=== PATIENT | male | born 1985 | race Caucasian/White ===

== ENCOUNTER 2018-05-16 16:07 | Emergency (ER) | payer OTHER ==
[~2018-05-16] VITALS: Ht 170.2 cm; Wt 77.1 kg
--- NOTE | 2018-05-16 16:08 | NUR ---
PT STEVE BYNUM, CURRENTLY AWAITING BED
[2018-05-16 16:12] VITALS: BP 178/121
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
--- NOTE | 2018-05-16 16:26 | NUR ---
PT TAKEN TO BED 4 BY EMS CREW
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
--- NOTE | 2018-05-16 16:45 | NUR ---
PT STATES HE WANTS TO LEAVE AT THIS TIME AND DOES NOT WANT TO BE HERE. DR. SMITH NOTIFIED.
--- NOTE | 2018-05-16 16:46 | NUR ---
PT LEAVING AT THIS TIME WITH STEADY GAIT, VSS. NO S/S OF DISTRESS NOTED.
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
== END 2018-05-16 16:46 | disposition left against medical advice (07) ==
LOC: MED 16:07
DX: F10.129 Alcohol abuse with intoxication, unspecified (principal); Z53.21 Procedure and treatment not carried out due to patient leaving prior to being seen by health care provider

== ENCOUNTER 2018-06-05 11:46 | Emergency (ER) | payer OTHER ==
[~2018-06-05] VITALS: Ht 167.6 cm; Wt 81.6 kg
--- NOTE | 2018-06-05 11:47 | NUR ---
PT TAKEN TO [place] AT THIS TIME IN POLICE CUSTODY IN HANDCUFFS BY [employer] OFFICER NAN.
[2018-06-05 11:50] VITALS: BP 183/87
[2018-06-05 12:27] VITALS: BP 183/87
--- NOTE | 2018-06-05 12:28 | NUR ---
Patient discharged with v/s stable. Written and verbal after care instructions given and explained. Patient verbalized understanding. excorted by police in custody. All questions addressed prior to discharge. Advised to follow up with PMD.
== END 2018-06-05 12:28 ==
LOC: MED 11:46
DX: F15.10 Other stimulant abuse, uncomplicated (principal); F32.9 Major depressive disorder, single episode, unspecified
CPT/HCPCS: 99283

== ENCOUNTER 2018-07-01 15:46 | Emergency (ER) | payer OTHER ==
[~2018-07-01] VITALS: Ht 170.2 cm; Wt 83.9 kg
[2018-07-01 15:46] VITALS: BP 165/113
--- NOTE | 2018-07-01 15:46 | NUR ---
PATIENT TRIAGED, VSS. CURRENTLY BEDS ARE FULL, [facility] ARE SITTING AT [facility]. PT WILL GO TO ROOM 8.
[2018-07-01] MEDS ORDERED: NACL 0.9% 1,000 ML IV ONE (16:43)
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
--- NOTE | 2018-07-01 17:14 | NUR ---
BISHNU AT BEDSIDE
--- NOTE | 2018-07-01 17:25 | NUR ---
PT REFUSING IV, MEDICATIONS, URINE, AND BLOOD DRAW
--- NOTE | 2018-07-01 17:56 | NUR ---
MOTHER AT BEDSIDE
--- NOTE | 2018-07-01 18:07 | NUR ---
ADAKU/EMT AT BEDSIDE
[2018-07-01] MEDS ORDERED: LORazepam 2 MG/ML VIAL IM ONE (18:15)
--- NOTE | 2018-07-01 18:41 | NUR ---
offered ativan to pt, pt refused.
[2018-07-01 18:48] LABS: BASOPHILS % (AUTO) 0.2 % (0.0-2.0); EOSINOPHILS % (AUTO) 0.3 % (0.0-4.0); HEMATOCRIT 49.4 % (36-52); HEMOGLOBIN 17.1 g/dL (12.0-18.0); LYMPHOCYTES # (AUTO) 2.3 K/uL (2.0-11.5); LYMPHOCYTES % (AUTO) 27.8 % (20.5-51.1); MEAN CORPUSCULAR HEMOGLOBIN 31 pg (27-31); MEAN CORPUSCULAR HGB CONC 35 g/dL (33-37); MONOCYTES # (AUTO) 0.7 K/uL (0.8-1.0); MONOCYTES % (AUTO) 8.9 % (1.7-9.3); NEUTROPHILS # (AUTO) 5.3 K/uL (1.8-7.7); NEUTROPHILS % (AUTO) 62.8 % (42.2-75.2); PLATELET COUNT (AUTO) 252 K/uL (140-450); RED BLOOD CELL COUNT(AUTO) 5.55 MIL/uL (4.20-6.10); RED CELL DISTRIBUTION WIDTH 13.6 % (11.6-13.7); WHITE BLOOD COUNT (AUTO) 8.4 K/uL (4.8-10.8)
[2018-07-01 18:59] LABS: ANION GAP 18.8 (8-16); CARBON DIOXIDE 24.9 mmol/L (21-32); CHLORIDE 102 mmol/L (98-107); GFR ARICAN-AMERICAN 111 mL/min (>90); GLUCOSE 85 mg/dL (74-106); POTASSIUM 3.7 mmol/L (3.5-5.1); SODIUM SERUM 142 mmol/L (136-145); UREA NITROGEN, BLOOD 18 mg/dL (7-18)
[2018-07-01 19:07] LABS: ALBUMIN 4.3 g/dL (3.4-5.0); ASPARTATE AMINOTRANSFERASE 26 U/L (15-37); TOTAL BILIRUBIN 0.5 mg/dL (0.0-1.0)
[2018-07-01 19:13] LABS: ACETAMINOPHEN < 0.5 ug/ml (10-30); SALICYLATE < 2.8 mg/dL (2.8-20.0)
--- NOTE | 2018-07-01 19:13 | NUR ---
report given to judd/mere
--- NOTE | 2018-07-01 19:20 | NUR ---
RECEIVED REPORT FROM AM NURSE. PT LAYING IN BED, MOTHER AT BEDSIDE. EXPLAINED TO PT THAT URINE SAMPLE IS NEEDED FOR PT TO GET MEDICAL CLEARANCE, PT IRRITABLE BUT COOPERATIVE, ATTEMPTED TO COLLECT URINE BUT UNABLE AT THIS TIME. PT GIVEN WATER. ER MD MADE AWARE. PER ER MD, VERBAL ORDER TO STRAIGHT CATH FOR URINE. EXPLAINED TO PT AND MOTHER.
--- NOTE | 2018-07-01 19:20 | NUR ---
PT LAYING IN BED, MOTHER AT BEDSIDE. RR EVEN AND UNLABORED. PT IS NOT ANSWERING IF PT HAS SI/HI OR PLAN AT THIS TIME, STATING "WHERE ARE MY PANTS." EXPLAINED TO PT THAT PT'S BELONGINGS WERE SENT TO SECURITY FOR PT AND FACILITY'S SAFETY. 1:1 SITTER WITH CLOSE MONITORING AT BEDSIDE, SAFETY MEASURES ENSURED, ENVIRONMENT CHECKED.
--- NOTE | 2018-07-01 19:47 | NUR ---
Note jeseone in EDM - 07/01/18 at 1948 by VAL RECEIVED REPORT FROM AM NURSE. PT LAYING IN BED, RR EVEN AND UNLABORED. PT DENIES ANY CP, PORTILLO, SOB, N/V, DIZZINESS. ALL NEEDS MET. AWAITING ER MSE
--- NOTE | 2018-07-01 19:58 | NUR ---
EXPLAINED TO PT AND PT'S FATHER THAT URINE SAMPLE IS NEEDED FOR PT TO GET MEDICAL CLEARANCE, PT IRRITABLE BUT COOPERATIVE, ATTEMPTED TO COLLECT URINE BUT UNABLE. EXPLAINED TO PT AND PT'S FATHER THAT ER MD ORDERED TO HAVE STRAIGHT CATH TO GET MEDICAL CLEARANCE AND NOT TO DELAY CARE. PT ABLE TO SUCCESSFULLY COLLECT OWN URINE AT THIS TIME. PT GIVEN SANDWICH.
--- NOTE | 2018-07-01 20:11 | NUR ---
TELEPSYCH REQUEST SENT
[2018-07-01 20:26] LABS: APPEARANCE,URINE CLEAR (CLEAR); BILIRUBIN,URINE 2+ (NEGATIVE); BLOOD, URINE NEGATIVE (NEGATIVE); COLOR,URINE YELLOW (YELLOW); LEUKOCYTE ESTERASE ,URINE NEGATIVE (NEGATIVE); NITRITE, URINE NEGATIVE (NEGATIVE); UGLUCOSE NEGATIVE (NEGATIVE)
[2018-07-01 20:37] LABS: RBC,URINE 0-5 /HPF (0-5)
[2018-07-01 20:38] LABS: WBC,URINE 0-5 /HPF (0-5)
[2018-07-01 20:40] LABS: BARBITURATE, URINE NEG. ng/ml (NEG <=200); BENZODIAZEPINE, URINE NEG. ng/mL (NEG <=200); CANNABINOID, URINE POS. ng/mL (NEG <=50); COCAINE, URINE NEG. ng/mL (NEG <=300); OPIATE, URINE NEG. ng/mL (NEG <=2000); PHENCYCLIDINE SCREEN,URINE POS. ng/mL (NEG <=25)
--- NOTE | 2018-07-01 20:58 | NUR ---
PT LAYING IN BED, RR EVEN AND UNLABORED. VS NOTED. ALL NEEDS MET. 1:1 SITTER AT BEDSIDE WITH CLOSE MONITOR. ENVIRONMENT CHECKED, SAFETY MEASURES ENSURED.
--- NOTE | 2018-07-01 22:03 | NUR ---
Packet has been recieved, will begin looking for bed placement at contracted facilities.
--- NOTE | 2018-07-01 22:22 | NUR ---
Called the following contracted psych facilities requesting for bed placement. Currently[facility], spoke with Maribeth. [facility], spoke with Dale. Packet faxed for waiting list. [facility], spoke with nursing food and nutrition services supervisor Jing. [facility], spoke with Blanca. Packet faxed for waiting list. [facility], spoke with Marcela. [facility], spoke with Maribeth. Packet faxed for waiting list. Will continue to look for bed placement.
--- NOTE | 2018-07-01 22:47 | NUR ---
PER RELIGIOUS HEALER, TELEPSYCH HAS BEEN DELAYED DUE TO HIGH VOLUMES. PT AND PT'S MOTHER MADE AWARE. PT'S MOTHER ASKING FOR RESULTS OF BLOODWORK AND URINE. ASKED PT FOR PERMISSION TO DISCUSS PT'S MEDICAL RESULTS, PT STATED "NO, YOU'RE JUST GOING TO CALL ME A DRUG ADDICT." STATED TO PT'S MOTHER THAT PT'S RESULTS CANNOT BE DISCUSSED WITHOUT PT'S PERMISSION AT THIS TIME, VERBALIZED UNDERSTANDING.
--- NOTE | 2018-07-01 22:48 | NUR ---
PT LAYING IN BED, PT MOTHER AT BEDSIDE. RR EVEN AND UNLABORED. ALL NEEDS MET. 1:1 SITTER AT BEDSIDE WITH CLOSE MONITOR. ENVIRONMENT CHECKED, SAFETY MEASURES ENSURED. AWAITING TELEPSYCH EVAL
--- NOTE | 2018-07-01 23:02 | NUR ---
PT AGREED TO HAVE MEDICAL RECORDS DISCUSSED WITH MOTHER AT BEDSIDE, PT STATED "YEA LET ME KNOW WHAT'S UP." PER ER MD, MADE PT AWARE THAT URINE WAS +PCP AND +CANNIBANOID. VS NOTED, AWAITING TELEPSYCH EVAL.
--- NOTE | 2018-07-01 23:33 | NUR ---
Pt report given to STONE GUAMAN. Transfer of care at this time.
--- NOTE | 2018-07-02 00:02 | NUR ---
PT AND HIS MOM AT BEDSIDE BOTH OF THEM ARE USING SWEAR WORDS, PT STATES HE IS NOT FUCKING STAYING HERE. HE WALKED OUT THE SLIDING GLASS DOORS 2X. EXPLAINED TO MOM THAT PT IS ON A 5150 HOLD AND MOM STARTING USING SWEAR WORDS.
--- NOTE | 2018-07-02 00:03 | NUR ---
[facility] CALLED FOR PATIENT WALKING OUT OF ER. PT IN PARKING LOT. SECURITY IS THERE. ALISHA ZARATE ON THEIR WAY.
--- NOTE | 2018-07-02 00:08 | NUR ---
DR RAO AT BEDSIDE TALKING WITH MOM AND PT. [facility] ARRIVED AND IS AT BEDSIDE.
--- NOTE | 2018-07-02 00:17 | NUR ---
SPOKE WITH DR. GALO REGARDING PT STATUS FOR TELEPSYCH CONSULT.
--- NOTE | 2018-07-02 00:19 | NUR ---
[facility] TALKED WITH PT. PT HAS AGREED AT THIS TIME TO COOPERATE WITH STAFF. PT HAS STOPPED USING SWEAR WORDS AT THIS TIME.
--- NOTE | 2018-07-02 00:20 | NUR ---
MOVED TO ER BED 5
--- NOTE | 2018-07-02 00:25 | NUR ---
ASSUMED CARE OF PT AT THIS TIME.
--- NOTE | 2018-07-02 00:26 | NUR ---
PT SPEAKING WITH TELEPSYCH MD AT THIS TIME. MOTHER AT BEDSIDE. TELEPSYCH MD ASKING BOTH PT AND PT'S MOTHER QUESTIONS.
--- NOTE | 2018-07-02 00:42 | NUR ---
RECEIVED CALL FROM DR GALO ; WAS MADE AWARE THAT PT IS BEING RELEASED FROM 5150 HOLD AND ADVISED TO GO OUTPATIENT. STATED THAT PT IS NOT SUICIDAL OR HOMICIDAL. STATED THAT PT IS DEPRESSED, ADMITS TO SUBSTANCE ABUSE AND AGREES TO CUT DOWN ON USE. DR RAO MADE AWARE.
--- NOTE | 2018-07-02 01:10 | NUR ---
PT PROVIDED WITH MENTAL HEALTH/COUNSELING PACKET AND SUBSTANCE ABUSE PACKET, PT VERBALIZED UNDERSTANDING.
[2018-07-02 01:11] VITALS: BP 140/94
--- NOTE | 2018-07-02 01:23 | NUR ---
ALL BELONGINGS RETURNED TO PT.
== END 2018-07-02 01:11 | disposition home or self-care (01) ==
LOC: MED 15:46
DX: F32.9 Major depressive disorder, single episode, unspecified (principal); F41.9 Anxiety disorder, unspecified; F19.10 Other psychoactive substance abuse, uncomplicated
CPT/HCPCS: 36415; 80053; 80305; 81001; 85025; 96372; 99285; G0480; G0482

== ENCOUNTER 2020-04-20 10:18 | Emergency (ER) | payer OTHER ==
[~2020-04-20] VITALS: Ht 170.2 cm; Wt 99.8 kg
--- NOTE | 2020-04-20 10:34 | NUR ---
PT REFUSING TO HAVE STAFF TAKE VITAL SIGNS. PT AGGRESSIVE REFUSING TO ALLOW US TO TAKE VITALS. PT VERBALLY AGGRESSIVE YELLING "FUCK YOU GUYS!
--- NOTE | 2020-04-20 10:40 | NUR ---
PATIENT BIB [employer]. PATIENT EXAMINED BY DR. PUGH. PATIENT MEDICALLY CLEARED AND RELEASED IN CUSTODY IN STABLE CONDITION. ORIGINAL PRE-BOOK FORM GIVEN TO OFFICER PIEDAD.
--- NOTE | 2020-04-20 10:40 | NUR ---
D/C INSTRUCTIONS GIVEN TO OFFICER PIEDAD.
== END 2020-04-20 10:40 ==
LOC: MED 10:18
DX: S00.31XA Abrasion of nose, initial encounter (principal); R04.0 Epistaxis; R00.0 Tachycardia, unspecified; Z02.89 Encounter for other administrative examinations; Y04.0XXA Assault by unarmed brawl or fight, initial encounter; Y93.89 Activity, other specified; Y92.89 Other specified places as the place of occurrence of the external cause; Y99.8 Other external cause status
CPT/HCPCS: 99283

== ENCOUNTER 2022-06-16 22:48 | Emergency (ER) | payer OTHER ==
[~2022-06-16] VITALS: Ht 165.1 cm; Wt 95.3 kg
[2022-06-16 22:48] VITALS: BP 150/100
--- NOTE | 2022-06-16 22:48 | NUR ---
PT BIB [facility], PREBOOK. TAKEN TO CHAIR
--- NOTE | 2022-06-16 22:49 | NUR ---
Dr. Whitley examining patient.
[2022-06-16 22:58] VITALS: BP 150/100
--- NOTE | 2022-06-16 22:58 | NUR ---
PATIENT BIB [facility] DEPT. PATIENT EXAMINED BY DR. RAO. PATIENT MEDICALLY CLEARED AND RELEASED IN CUSTODY IN STABLE CONDITION. ORIGINAL PRE-BOOK FORM GIVEN TO OFFICER PRAVEEN #[id number]. Patient discharged with v/s stable. Written and verbal after care instructions given and explained. Patient verbalized understanding. Police with in custody. All questions addressed prior to discharge. Advised to follow up with PMD.
== END 2022-06-16 22:58 ==
LOC: MED 22:48
DX: Z02.89 Encounter for other administrative examinations (principal); V49.88XA Car occupant (driver) (passenger) injured in other specified transport accidents, initial encounter; Y93.89 Activity, other specified; Y92.89 Other specified places as the place of occurrence of the external cause; Y99.8 Other external cause status
CPT/HCPCS: 99283

== ENCOUNTER 2022-06-22 16:36 | Emergency (ER) | payer OTHER ==
[~2022-06-22] VITALS: Ht 165.1 cm; Wt 79.8 kg
--- NOTE | 2022-06-22 16:41 | NUR ---
PT BEING AGGRESSIVE AND NOT COOPERATING WITH STAFF TO FINISH OBTAINING VITAL SIGNS, ERMD AWARE.
--- NOTE | 2022-06-22 18:16 | NUR ---
PATIENT BIB [place] [employer]. PATIENT EXAMINED BY DR. RAO. PATIENT MEDICALLY CLEARED AND RELEASED IN CUSTODY IN STABLE CONDITION. ORIGINAL PRE-BOOK FORM GIVEN TO OFFICER TIMOTHY #[id number].
== END 2022-06-22 18:16 ==
LOC: MED 16:36
DX: S80.812A Abrasion, left lower leg, initial encounter (principal); S80.811A Abrasion, right lower leg, initial encounter; Z02.89 Encounter for other administrative examinations; V89.2XXA Person injured in unspecified motor-vehicle accident, traffic, initial encounter; Y93.89 Activity, other specified; Y92.410 Unspecified street and highway as the place of occurrence of the external cause; Y99.8 Other external cause status
CPT/HCPCS: 99283

== ENCOUNTER 2022-11-25 03:30 | Emergency (ER) | payer OTHER ==
[~2022-11-25] VITALS: Ht 177.8 cm; Wt 79.4 kg
[2022-11-25 03:33] VITALS: BP 159/111; PULSE 103; RESP 20; TEMP 97.5; O2SAT 99
[2022-11-25 03:50] VITALS: BP 159/111; PULSE 103; RESP 20; TEMP 97.5; O2SAT 99
== END 2022-11-25 03:50 | disposition left against medical advice (07) ==
LOC: MED 03:30
DX: T40.604A Poisoning by unspecified narcotics, undetermined, initial encounter (principal); Y92.89 Other specified places as the place of occurrence of the external cause
CPT/HCPCS: 99283

== ENCOUNTER 2023-04-23 20:16 | Emergency (ER) | payer OTHER ==
[~2023-04-23] VITALS: Ht 170.2 cm; Wt 70.3 kg
[2023-04-23 20:25] VITALS: BP 144/92; PULSE 81; RESP 16; TEMP 98.1; O2SAT 100
[2023-04-23] MEDS ORDERED: BACITRACIN OINT 500 UNITS/GM PKT TP ONE (21:35)
[2023-04-23 22:04] VITALS: BP 130/80; PULSE 78; RESP 16; TEMP 98.1; O2SAT 100
== END 2023-04-23 22:04 | disposition home or self-care (01) ==
LOC: MED 20:16
DX: S01.01XD Laceration without foreign body of scalp, subsequent encounter (principal); F10.129 Alcohol abuse with intoxication, unspecified; Y90.9 Presence of alcohol in blood, level not specified; W22.8XXD Striking against or struck by other objects, subsequent encounter
CPT/HCPCS: 70450; 99284